=== PATIENT | female | born 1995 | race Caucasian/White ===

== ENCOUNTER → 2023-02-13 13:08 | Outpatient (BNVA) | payer OTHER, SELFPAY | PROVIDERS: PCP Internal Medicine; Visit Provider Nurse Practitioner Family | DX: G43.709 Chronic migraine without aura, not intractable, without status migrainosus (principal); G47.9 Sleep disorder, unspecified | CPT/HCPCS: 99202 ==

== ENCOUNTER → 2023-05-01 14:21 | Outpatient (BNVA) | payer OTHER, SELFPAY | PROVIDERS: PCP Internal Medicine; Visit Provider Nurse Practitioner Family | DX: G43.709 Chronic migraine without aura, not intractable, without status migrainosus (principal); G47.9 Sleep disorder, unspecified; K58.2 Mixed irritable bowel syndrome; F44.6 Conversion disorder with sensory symptom or deficit | CPT/HCPCS: 99212 ==

== ENCOUNTER 2023-10-31 14:19 | Outpatient (AMB) | payer OTHER, SELFPAY ==
--- NOTE | 2023-10-31 14:32 | MHC.OFFVIS ---
Intake Vital Signs 10/31/23 14:36 Height 5 ft 3 in Weight 115 lb BMI 20.4 Pulse 98 Pulse Source Pulse Oximeter Pulse Oximetry (%) 98 Oxygen Delivery Method Room Air Intake Visit Reasons: 6m follow up Migraines-LVM Intake Note: Patient presents for 6 month follow up migraines. more controlled but still getting them Allergies amoxicillin [From Augmentin] Allergy (Unknown, Verified 10/31/23 14:39) Rash clavulanic acid [From Augmentin] Allergy (Unknown, Verified 10/31/23 14:39) Rash levofloxacin [From Levaquin] Allergy (Unknown, Verified 10/31/23 14:39) Rash Medication List - Last Reconciled 10/31/23 by MONICA Lagos acetaminophen (Tylenol Extra Strength) 500 mg PO Q6H PRN atogepant 60 mg PO DAILY 30 days azelaic acid 15% 1 appl topical DAILY dicyclomine 10 mg PO QID duloxetine 30 mg PO DAILY eletriptan (Relpax) 40 mg PO Q2-4H PRN 30 days ibuprofen 200 mg PO Q6H PRN naproxen 500 mg PO BID norethindrone acetate 5 mg PO DAILY ondansetron HCl 4 mg PO Q8H promethazine 25 mg PO Q6H PRN riboflavin (vitamin B2) 400 mg PO DAILY 30 days HPI HPI Comments History of Present Illness Details 28-yr-old female presents for f/u visit. Pt states her migraines have improved some. Now about 10 days per month. Qulipta initially was helpful, but then increased nausea and worsened headaches. She did hold it and retry- but had the same s/s. She notes she does not eat much d/t her GI s/s- she is adjusting her diet and working w/ GI to optimize tx. Eletriptan is helpful. Does not always sleep well. [facility] Medical History (Updated 05/01/23 @ 17:05 by MONICA Lagos) GERD (gastroesophageal reflux disease) Chronic back pain Rosacea Irritable bowel syndrome with constipation and diarrhea Vitamin D deficiency Surgical History Status post skin flap graft Hx of appendectomy Family History Mother Migraines Hypertension Anxiety Father Bipolar disorder Alcoholism Sister Scoliosis ADHD Social History Alcohol intake: never Patient Tobacco Use Status: Never used Tobacco Review of Systems Const All systems reviewed & are unremarkable except as noted in HPI and below Physical Exam Vital Signs: Last Vital Signs Pulse 98 10/31/23 14:36 Pulse Ox 98 10/31/23 14:36 Oxygen Delivery Method Room Air 10/31/23 14:36 BMI result Body Mass Index 20.4 Const General: cooperative and no acute distress Orientation/consciousness: patient oriented x3 HEENT Head: Yes normocephalic Resp Effort & Inspection: normal respiratory effort and able to speak in complete sentences Neuro General: patient oriented x3 and CN's II-XI intact bilaterally Cognition (Neuro): normal cognition Psych Appearance: grossly normal Mental Status: mental status grossly normal Speech and movement: Normal speech and movement present Affect: normal affect Attitude: cooperative Thought process: Normal thought process present Assessment & Plan Assessment & Plan (1) Chronic migraine without aura: Code(s): G43.709 - Chronic migraine without aura, not intractable, without status migrainosus (2) Difficulty sleeping: Code(s): G47.9 - Sleep disorder, unspecified (3) 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 adequate fluid intake, adequate sleep, and engaging in regular physical activity. Track headaches. ? For acute headache treatment: Continue Eletriptan 40mg prn. May adjunct w/ Tylenol, Ibuprofen, or Naproxen prn. Continue on anti-nausea regimen per GI. Previous acute migraine medication trials: Sumatriptan- ineffective. Zolmitriptan- ineffective. Naratriptan- ineffective. Acute migraine medication contraindications: None at this time. ? For headache prevention medication: Riboflavin 400mg qam Stopped Atogepant 60mg qhs- not tolerated. Trial Mirtazapine 7.5mg qhs- may help w/ appetite an d sleep as well. Reviewed potential adverse effects of gepants, including but not limited to fatigue, constipation. Previous migraine prevention medication trials: Amitriptyline- ineffective. Propranolol- ineffective. Topiramate- ineffective. Atogepant- worked but then did not- and caused nausea. Magnesium 400mg qhs- caused loose stools Migraine prevention medication contraindications: Botox or CGRP MaBs as pt is very needle-phobic. ? Future considerations- refer to [facility] [place] [facility]- for lumabr strain/RLE s/s. ? f/u in 4 months or sooner prn. 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
[2023-10-31 14:36] VITALS: PULSE 98; O2SAT 98; BMI 20.4
== END 2023-10-31 15:25 | disposition home or self-care (01) ==
PROVIDERS: PCP Internal Medicine; Visit Provider Nurse Practitioner Family
DX: G43.709 Chronic migraine without aura, not intractable, without status migrainosus (principal); G47.9 Sleep disorder, unspecified; F44.6 Conversion disorder with sensory symptom or deficit
CPT/HCPCS: 99214

== ENCOUNTER → 2023-10-31 14:19 | Outpatient (BNVA) | payer OTHER, SELFPAY | PROVIDERS: PCP Internal Medicine; Visit Provider Nurse Practitioner Family | DX: G43.709 Chronic migraine without aura, not intractable, without status migrainosus (principal); G47.9 Sleep disorder, unspecified; F44.6 Conversion disorder with sensory symptom or deficit | CPT/HCPCS: 99212 ==

== ENCOUNTER 2024-03-06 14:28 | Outpatient (AMB) | payer OTHER, SELFPAY ==
--- NOTE | 2024-03-06 14:34 | A.OFFVIS_ITS ---
Vital Signs 03/06/24 14:37 Height 5 ft 3 in BP 110/72 Blood Pressure Location Rt brachial Position Sitting Pulse 90 Pulse Source Pulse Oximeter Pulse Oximetry (%) 98 Oxygen Delivery Method Room Air Intake Visit Reasons: 4 mo f/u - Migraines-CONF Intake Note: Patient presents follow up . Patient migraines are kind of the same she prescribed ubrelvy but by the time patient got medication migraines was gone. Allergies amoxicillin [From Augmentin] Allergy (Unknown, Verified 03/06/24 14:36) Rash clavulanic acid [From Augmentin] Allergy (Unknown, Verified 03/06/24 14:36) Rash levofloxacin [From Levaquin] Allergy (Unknown, Verified 03/06/24 14:36) Rash HPI Comments Details: 29-yr-old female presents for f/u visit. Pt denies any significant interval medical changes. Pt states that her headaches had subsided, but have returned. She had a severe migraine in Dec, she had to go to urgent care. The Eletriptan was not effective at that time. After that visit, we started pt on Ubrelvy prn, which has been helpful. Since, she has been using Eletriptan and Ubrelvy with better effect. Appetite is a bit better. Baseline headache characteristics: Prodrome symptoms: None Aura: No usual aura- may sometimes white lights Headache: Severe, usually bifrontal stabbing and throbbing, Photophobia, phonophobia, osmophobia, nausea, rarely vomiting, room spinning dizziness, brain fog, fatigue. Postdrome: Residual fatigue. [facility] Medical History (Updated 05/01/23 @ 17:05 by MONICA Lagos) GERD (gastroesophageal reflux disease) Chronic back pain Rosacea Irritable bowel syndrome with constipation and diarrhea Vitamin D deficiency Surgical History Status post skin flap graft Hx of appendectomy Family History Mother Migraines Hypertension Anxiety Father Bipolar disorder Alcoholism Sister Scoliosis ADHD Social History Alcohol intake: never Patient Tobacco Use Status: Never used Tobacco Physical Exam Vital Signs: Last Vital Signs Pulse 90 03/06/24 14:37 BP 110/72 03/06/24 14:37 Pulse Ox 98 03/06/24 14:37 Oxygen Delivery Method Room Air 03/06/24 14:37 Const General: cooperative and no acute distress Orientation/consciousness: patient oriented x3 Resp Effort & Inspection: normal respiratory effort and able to speak in complete sentences Neuro Other: Slow to stand- short steps w/ antalgic gait- steady w/cane. 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 adequate fluid intake, adequate sleep, and engaging in regular physical activity. Track headaches. ? For acute headache treatment: Continue Eletriptan 40mg prn. May adjunct w/ Tylenol, Ibuprofen, or Naproxen prn. Continue Ubrelvy 100mg prn. Ondansetron 4mg prn. May use Promethazine 25mg prn. Continue on anti-nausea regimen per GI. Previous acute migraine medication trials: Sumatriptan- ineffective. Zolmitriptan- ineffective. Naratriptan- ineffective. Acute migraine medication contraindications: None at this time. ? For headache prevention medication: Continue Riboflavin 400mg qam. Continue Mirtazapine 7.5mg qhs. Previous migraine prevention medication trials: Amitriptyline- ineffective. Propranolol- ineffective. Topiramate- ineffective. Atogepant- worked but then did not- and caused nausea. Magnesium 400mg qhs- caused loose stools Migraine prevention medication contraindications: Botox or CGRP MaBs as pt is very needle-phobic. ? Future considerations- [place] [facility] [place]- for lumbar strain/RLE s/s. ? f/u in 6 months or sooner prn. 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
[2024-03-06 14:37] VITALS: BP 110/72; PULSE 90; O2SAT 98
== END 2024-03-06 15:17 | disposition home or self-care (01) ==
PROVIDERS: PCP Internal Medicine; Visit Provider Nurse Practitioner Family
DX: G43.709 Chronic migraine without aura, not intractable, without status migrainosus (principal); G47.9 Sleep disorder, unspecified; F44.6 Conversion disorder with sensory symptom or deficit
CPT/HCPCS: 99214

== ENCOUNTER → 2024-03-06 14:28 | Outpatient (BNVA) | payer OTHER, SELFPAY | PROVIDERS: PCP Internal Medicine; Visit Provider Nurse Practitioner Family | DX: G43.709 Chronic migraine without aura, not intractable, without status migrainosus (principal); G47.9 Sleep disorder, unspecified; F44.6 Conversion disorder with sensory symptom or deficit | CPT/HCPCS: 99212 ==

== ENCOUNTER 2024-09-10 15:22 | Outpatient (AMB) | payer OTHER, SELFPAY ==
--- NOTE | 2024-09-10 15:22 | MHC.OFFVIS ---
Vital Signs 09/10/24 15:23 Height 5 ft 3 in Weight 125 lb BMI 22.1 BP 102/68 Blood Pressure Location Rt brachial Position Sitting Pulse 112 H Pulse Source Pulse Oximeter Pulse Oximetry (%) 98 Oxygen Delivery Method Room Air Intake Visit Reasons: 6 month F/U [employer] Required: No Accompanied by: Self / Same As Patient Allergies amoxicillin [From Augmentin] Allergy (Unknown, Verified 09/10/24 15:23) Rash clavulanic acid [From Augmentin] Allergy (Unknown, Verified 09/10/24 15:23) Rash levofloxacin [From Levaquin] Allergy (Unknown, Verified 09/10/24 15:23) Rash Medication List - Last Reconciled 09/10/24 by Vale Aguila, MONICA acetaminophen (Tylenol Extra Strength) 500 mg PO Q6H PRN azelaic acid 15% 1 appl topical DAILY dicyclomine 20 mg PO QID duloxetine 30 mg PO DAILY eletriptan (Relpax) 40 mg PO Q2-4H PRN 30 days ibuprofen 200 mg PO Q6H PRN mirtazapine 7.5 mg PO BEDTIME 30 days naproxen 500 mg PO BID norethindrone acetate 5 mg PO DAILY ondansetron HCl 4 mg PO Q8H prednisone 5 mg PO DAILY promethazine 25 mg PO Q6H PRN riboflavin (vitamin B2) 400 mg PO DAILY 30 days ubrogepant (Ubrelvy) 50 - 100 mg (0.5 - 1 x 100 mg) PO ONCE PRN 30 days HPI Comments Details: 29-yr-old female presents for f/u visit. Pt did have Covid-19 in early Jun- started as prolonged migraine, weakness, cough/congestion f/b anorexia, N/D x's 1.5 wks. She eventually did return to her baseline. Pt states she has had an uptick in migraine attacks. She attributes this to recent weather changes and that her hair is longer. She is having a daily but not constant migraine - intensity can vary, when severe she cannot do her daily activities. Tolerating mirtazapine well- helping with appetite, weight gain- gained 10lbs , but not so much with the migraines. Using Eletriptan and Ubrelvy with better effect when migraine is severe, as eletriptan makes her sleepy which is helpful. She is still prone to frequent nausea and IBS flare-ups w/ fluctuating diarrhea and constipation. Continues to walk with cane. Baseline headache characteristics: Prodrome symptoms: None Aura: No usual aura- may sometimes white lights Headache: Severe, usually bifrontal stabbing and throbbing, Photophobia, phonophobia, osmophobia, nausea, rarely vomiting, room spinning dizziness, brain fog, fatigue. Postdrome: Residual fatigue. PFSH Medical History GERD (gastroesophageal reflux disease) Chronic back pain Rosacea Irritable bowel syndrome with constipation and diarrhea Vitamin D deficiency Surgical History Status post skin flap graft Hx of appendectomy Family History Mother Migraines Hypertension Anxiety Father Bipolar disorder Alcoholism Sister Scoliosis ADHD Social History Alcohol intake: never Patient Tobacco Use Status: Never used Tobacco Physical Exam Vital Signs: Last Vital Signs Pulse 112 H 09/10/24 15:23 BP 102/68 09/10/24 15:23 Pulse Ox 98 09/10/24 15:23 Oxygen Delivery Method Room Air 09/10/24 15:23 BMI result Body Mass Index 22.1 Const General: cooperative and no acute distress Orientation/consciousness: patient oriented x3 Resp Effort & Inspection: normal respiratory effort and able to speak in complete sentences Neuro Other: Slow to stand- short steps w/ antalgic gait- steady w/cane. 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 adequate fluid intake, adequate sleep, and engaging in regular physical activity. Track headaches. ? For acute headache treatment: Continue Ubrelvy 100mg prn. May adjunct w/ prn Eletriptan 40mg, Tylenol, Ibuprofen, or Naproxen.. Ondansetron 4mg prn. May use Promethazine 25mg prn. Continue on anti-nausea regimen per GI. Previous acute migraine medication trials: Sumatriptan- ineffective. Zolmitriptan- ineffective. Naratriptan- ineffective. Acute migraine medication contraindications: None at this time. ? For headache prevention medication: Continue Riboflavin 400mg qam. Continue Mirtazapine 7.5mg qhs- would not increase further as pt has already had 10 lb wt gain 6 6 months. Start Vyepti 100mg IV infusion q 3 months- pt states she belives she can do this as long as it is one IV just every 3 months and she can lay flat to avoid syncopal response. Previous migraine prevention medication trials: Amitriptyline- ineffective. Propranolol- ineffective. Topiramate- ineffective. Atogepant- worked but then did not- and caused nausea. Magnesium 400mg qhs- caused loose stools Migraine prevention medication contraindications: Botox or CGRP MaBs as pt is very needle-phobic. Depakote d/t pt is a female of child bearing age. ? Future considerations- refer to [facility] [place] [facility]- for lumbar strain/RLE s/s. ? f/u in 4-6 months or sooner prn. 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
[2024-09-10 15:23] VITALS: BP 102/68; PULSE 112; O2SAT 98; BMI 22.1
== END 2024-09-10 16:13 | disposition home or self-care (01) ==
PROVIDERS: PCP Internal Medicine; Visit Provider Nurse Practitioner Family
DX: G43.709 Chronic migraine without aura, not intractable, without status migrainosus (principal); F44.6 Conversion disorder with sensory symptom or deficit; K58.2 Mixed irritable bowel syndrome; G47.9 Sleep disorder, unspecified
CPT/HCPCS: 99214

== ENCOUNTER → 2024-09-10 15:22 | Outpatient (BNVA) | payer OTHER, SELFPAY | PROVIDERS: PCP Internal Medicine; Visit Provider Nurse Practitioner Family | DX: G43.709 Chronic migraine without aura, not intractable, without status migrainosus (principal); F44.6 Conversion disorder with sensory symptom or deficit; K58.2 Mixed irritable bowel syndrome; G47.9 Sleep disorder, unspecified | CPT/HCPCS: 99212 ==

== ENCOUNTER 2025-04-07 14:52 | Outpatient (AMB) | payer OTHER, SELFPAY ==
--- NOTE | 2025-04-07 14:53 | A.OFFVIS_ITS ---
Vital Signs 04/07/25 14:55 Height 5 ft 3 in Weight 125 lb BMI 22.1 Intake Visit Reasons: Follow Up Intake Note: Patient presents for follow up migraines med trial Allergies amoxicillin [From Augmentin] Allergy (Unknown, Verified 04/07/25 15:06) Rash clavulanic acid [From Augmentin] Allergy (Unknown, Verified 04/07/25 15:06) Rash levofloxacin [From Levaquin] Allergy (Unknown, Verified 04/07/25 15:06) Rash Medication List - Last Reconciled 04/07/25 by MONICA Lagos acetaminophen (Tylenol Extra Strength) 500 mg PO Q6H PRN azelaic acid 15% 1 appl topical DAILY dicyclomine 20 mg PO QID duloxetine 30 mg PO DAILY eletriptan (Relpax) 40 mg PO Q2-4H PRN 30 days eptinezumab-jjmr (Vyepti) 100 mg IV [id number] 4 doses ibuprofen 200 mg PO Q6H PRN mirtazapine 7.5 mg PO BEDTIME 30 days naproxen 500 mg PO BID norethindrone acetate 5 mg PO DAILY ondansetron HCl 4 mg PO Q8H prednisone 5 mg PO DAILY promethazine 25 mg PO Q6H PRN riboflavin (vitamin B2) 400 mg PO DAILY 30 days ubrogepant (Ubrelvy) 50 - 100 mg (0.5 - 1 x 100 mg) PO ONCE PRN 30 days HPI Comments Details: 29-yr-old female presents for f/u visit of migraine. Pt reports she has had an uptick in right sided pressure headaches in the last few weeks, a/w photophobia/phonophobia and increased nausea. The nausea makes her not want to eat. Putting her head down to her knees and eletriptan helps if taken at the 1st sign, but may come back. If she does not catch it at the 1st soon, the headache is is much harder to treat. She had a similar headache like this last year during allergy season She is prone to allergy symptoms and postnasal drip, uses Flonase. Prone to waking up with a scratchy sore throat. She also notes she did aggravate her lower back recently while helping to put together her bed. Pt reports in general she is having a migraine every other day, rarely every third day. Migraine intensity can vary, when severe she cannot do her daily activities. Tolerating mirtazapine well- helping with sleep and appetite, weight gain- previously gained 10lbs and weight has been stable since, but not so much with the migraines. Using Eletriptan and Ubrelvy with better effect when migraine is severe, as eletriptan makes her sleepy which is helpful. She did not start Vyepti, though it appears request for prior authorization indicated that this does not require insurance prior authorization. She is still prone to frequent nausea and IBS flare-ups w/ fluctuating diarrhea and constipation. Continues to walk with cane. Baseline headache characteristics: Prodrome symptoms: None Aura: No usual aura- may sometimes white lights Headache: Severe, usually bifrontal stabbing and throbbing, Photophobia, phonophobia, osmophobia, nausea, rarely vomiting, room spinning dizziness, brain fog, fatigue. Postdrome: Residual fatigue. [facility] Medical History GERD (gastroesophageal reflux disease) Chronic back pain Rosacea Irritable bowel syndrome with constipation and diarrhea Vitamin D deficiency Surgical History Status post skin flap graft Hx of appendectomy Family History Mother Migraines Hypertension Anxiety Father Bipolar disorder Alcoholism Sister Scoliosis ADHD Social History Alcohol intake: never Patient Tobacco Use Status: Never used Tobacco Physical Exam Vital Signs: BMI result Body Mass Index 22.1 Const General: cooperative and no acute distress Orientation/consciousness: patient oriented x3 Resp Effort & Inspection: normal respiratory effort and able to speak in complete sentences Neuro Other: Slow to stand- short steps w/ antalgic gait- steady w/cane. General: patient oriented x3 Cranial nerves: Yes CN's II-XII intact bilaterally Cognition (Neuro): normal cognition Psych Appearance: grossly normal Mental Status: mental status grossly normal Speech and movement: Normal speech and movement present Affect: normal affect Attitude: cooperative Assessment & Plan Assessment & Plan (1) Chronic migraine without aura: Code(s): G43.709 - Chronic migraine without aura, not intractable, without status migrainosus Category: Medical Qualifiers: Status migrainosus presence: without status migrainosus Intractability: not intractable Qualified Code(s): G43.709 - Chronic migraine without aura, not intractable, without status migrainosus (2) 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 adequate fluid intake, adequate sleep, and engaging in regular physical activity. Track headaches. For sleep: Trial adjusting her current Flonase treatment, with Azelastine 137 mcg 2 sprays q.h.s., and 2 sprays q.a.m. as needed- in hopes this reduces allergy symptoms, improve sleep, and reduces seasonal allergy induced migraine attacks. ? For acute headache treatment: Continue Ubrelvy 100mg prn. May adjunct w/ prn Eletriptan 40mg, Tylenol, Ibuprofen, or Naproxen.. Ondansetron 4mg prn. May use Promethazine 25mg prn. Continue on anti-nausea regimen per GI. Previous acute migraine medication trials: Sumatriptan- ineffective. Zolmitriptan- ineffective. Naratriptan- ineffective. Acute migraine medication contraindications: None at this time. ? For headache prevention medication: Continue Riboflavin 400mg qam. Continue Mirtazapine 7.5mg qhs- would not increase further as pt has already had 10 lb wt gain 6 6 months. Start Vyepti 100mg IV infusion q 3 months- pt states she belives she can do this as long as it is one IV just every 3 months and she can lay flat to avoid s yncopal response. * Initiated Vyepti hold Q order for the infusion center. Previous migraine prevention medication trials: Amitriptyline- ineffective. Propranolol- ineffective. Topiramate- ineffective. Atogepant- worked but then did not- and caused nausea. Magnesium 400mg qhs- caused loose stools Migraine prevention medication contraindications: Botox or CGRP MaBs as pt is very needle-phobic. Depakote d/t pt is a female of child bearing age. ? Future considerations- refer [place] [facility] [place] [facility] [place]- for lumbar strain/RLE s/s. ? f/u in 6 months or sooner prn. Medications: New azelastine administer into each nostril 137 mcg (0.137 mL) intranasal Q12H 30 days 8.22 mL 6RF Changed From riboflavin (vitamin B2) 400 mg PO DAILY 30 days 30 tabs 6RF To riboflavin (vitamin B2) 400 mg PO DAILY 90 days 90 tabs 3RF Refilled mirtazapine 7.5 mg PO BEDTIME 30 days 30 tabs 6RF eletriptan (Relpax) do not exceed 2 doses per 24 hrs 40 mg PO Q2-4H 30 days PRN 12 tabs 6RF migraine headache ubrogepant (Ubrelvy) take at onset of migraine, may repeat in 2hrs (may take w/ Ibuprofen) 50 - 100 mg (0.5 - 1 x 100 mg) PO ONCE 30 days PRN 16 tabs 6RF migraine headache Coding Level of Care Code Est Pt Level 4 (62202) Diagnoses Chronic migraine without aura without status migrainosus, not intractable G43.709 Status migrainosus presence: without status migrainosus Intractability: not intractable 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
[2025-04-07 14:55] VITALS: BMI 22.1
--- OUTSIDE RECORDS SUMMARY | 2025-04-07 14:58 | XMS_ITS | Clinical Summary ---
Author Organization [facility] Address [address] [place] [address] Care Team Providers Care Magazine Journalist Name Role Phone Alix Deshpande MD Primary Care Provider [phone] Allergies Active Allergy Reactions Criticality Noted Date Comments Amoxicillin-Pot Clavulanate 08/12/20 19 Levofloxacin 08/12/2019 Medications Medication Sig Dispensed Refills Start Date End Date Status ibuprofen (ADVIL,MOTRIN) 600 MG tablet Take 600 mg by mouth every 6 (six) hours as needed. for pain 0 07/23/2019 Active promethazine (PHENERGAN) tablet 25 mg Take 25 mg by mouth every 8 (eight) hours as needed. for nausea 2 07/22/2019 Active ondansetron (ZOFRAN-ODT) 4 MG disintegrating tablet DISSOLVE 1 TABLET BY MOUTH EVERY 8 HOURS NEEDED FOR NAUSEA *INSURANCE PAYS FOR 1 TAB A DAY* 2 07/20/2019 Active norethindrone (AYGESTIN) 5 MG tablet Take 5 mg by mouth daily. 11 07/20/2019 Active tiZANidine (ZANAFLEX) 4 MG tablet TAKE 1 TAB BY MOUTH AT BEDTIME NEEDED FOR MUSCLE SPASMS. 0 07/15/2019 Active [facility] SENNA 8.6 MG tablet TAKE 2 TABLETS BY MOUTH DAILY NEEDED FOR CONSTIPATION 5 06/02/2019 Active acetaminophen (TYLENOL) 500 MG tablet Take by mouth every 6 (six) hours as needed. 0 Active Active Problems Problem Noted Date Diagnosed Date [place]-neck deformity left small finger 08/12/2019 Family History Medical History Relation Name Comments Anesthesia problems Mother Arthritis Mother Scoliosis Mother Scoliosis Sister Relation Name Status Comments Mother Sister Social History Tobacco Use Types Packs/Day Years Used Date Smoking Tobacco: Never Smokeless Tobacco: Never Alcohol Use Standard Drinks/Week Comments No 0 (1 standard drink = 0.6 oz pur e alcohol) Sex and Gender Information Value Date Recorded Sex Assigned at Not on file Gender Identity Not on file Sexual Orientation Not on file Job Start Date Occupation Industry Not on file Not on file Not on file Last Filed Vital Signs Vital Sign Reading Time Taken Comments Blood Pressure - - Pulse - - Temperature - - Respiratory Rate - - Oxygen Saturation - - Inhaled Oxygen Concentration - - Weight 63.5 kg (140 lb) 08/12/2019 11:10 AM EDT per patient Height 160 cm (5' 3 ) 08/12/2019 11:10 AM EDT pe r patient Body Mass Index 24.8 08/12/2019 11:10 AM EDT Plan of Treatment Health Maintenance Due Date Last Done Comments Hepatitis B Vaccines (1 of 3 - 3-dose series) 1996 Hepatitis C Screening 1996 COVID-19 Vaccine (#1) 1996 Depression Screening 2008 Preventative Health Evaluation 02/20/2014 DTap / Tdap / Td (1 - Tdap) 02/20/2015 Cervical Cancer Screening (P ap Smear) 02/20/2017 Influenza Vaccine (#1) 2024 Pneumococcal Vaccine Aged Out No long er eligible based on patient's age to complete this topic RSV Ped < 20 months Aged Out No longe r eligible based on patient's age to complete this topic Care Teams Magazine Journalist Relationship Specialty Start Date End Date Alix Deshpande MD PCP - General Internal Medicine 07/21/19
--- OUTSIDE RECORDS SUMMARY | 2025-04-07 14:58 | XMS_ITS | Clinical Summary ---
Author Organization [address] Address [address] [place] [phone] Phone Care Team Providers Care Machine Sign Writer Name Role Phone Senia Hayes MD Primary Care Provider [phone] Allergies Active Allergy Reactions Criticality Noted Date Comments Amoxicillin-Pot Clavulanate 03/19/20 13 Other Reaction(s): Rash/Dermatitis Levofloxacin Rash High 03/20/2018 Kdc: propylene Glycol+saccharin+levoflo xacin Medications azelaic acid (FINACEA) 15 % gel Apply 1 film topically. 023 Active eletriptan (RELPAX) 40 mg tablet Take 1 tablet (40 mg total) by mouth. 020 Active ondansetron ODT (ZOFRAN-ODT) 8 mg disintegrating tablet Take 1 tablet (8 mg total) by mouth. 024 Active promethazine (PHENERGAN) 25 mg tablet Take 1 tablet (25 mg total) by mouth every 8 (eight) hours if needed. 024 Active ubrogepant (UBRELVY) 100 mg tablet Take 1 tablet (100 mg total) by mouth 1 (one) time. Active norethindrone (AYGESTIN) 5 mg tabletIndications :Dysmenorrhea, unspecified TAKE 1 TABLET BY MOUTH EVERY DAY 90 tablet 4 024 Active Pain Relief ES, acetaminophen, 500 mg tablet TAKE 2 TABLETS BY MOUTH EVERY 6 HOURS NEEDED (PAIN). 90 tablet Active dicyclomine (BENTYL) 20 mg tablet TAKE 1 TABLET BY MOUTH 4 TIMES DAILY FOR 180 DAYS. 120 tablet 5 Active amitriptyline (ELAVIL) 10 mg tablet TAKE 1 TABLET BY MOUTH DAILY AT BEDTIME FOR PAIN Active ivermectin 1 % cream APPLY TO FACE EVERY DAY Active fluticasone propionate (FLONASE) 50 mcg/actuation nasal spray Administer 1 spray into each nostril 2 (two) times a day. Shake gently. Before first use, prime pump. After use, clean tip and replace cap. 16 g 1 Active cetirizine (ZyrTEC) 10 mg tablet Take 1 tablet (10 mg total) by mouth 1 (one) time each day. 30 each 1 Active mirtazapine (REMERON) 7.5 mg tablet Take 1 tablet (7.5 mg total) by mouth. at bedtime Active mesalamine (LIALDA) 1.2 gram EC tabletIndications :Ileitis Take 1 tablet (1.2 g total) by mouth 1 (one) time each day. Do not crush, chew, or split. 30 each 3 025 2025 Active tiZANidine (ZANAFLEX) 4 mg tablet Take 1 tablet (4 mg total) by mouth at bedtime. 7 tablet Active benzocaine-mentho L (Cepacol Instamax Sore Throat) 15-20 mg lozenge Dissolve 1 lozenge in the mouth every 4 (four) hours if needed (sore throat). 30 lozenge 1 025 2024 Discontinued ibuprofen (ADVIL,MOTRIN) 100 mg/5 mL suspension Take 30 mL (600 mg total) by mouth every 8 (eight) hours if needed (sore throat). 900 mL 2024 Discontinued(T herapy completed) diphenhydrAMINE 12.5 mg/5 mL elixir 50 mg, aluminum-magnesiu m hydroxide-simethi cone 400-400-40 mg/5 mL suspension 20 mL, lidocaine 2 % solution 20 mL Gargle & spit 10mLs every 6 hours PRN pharyngitis 1 each 1 02/04/ 025 2024 Discontinued(T herapy completed) baclofen (LIORESAL) 10 mg tablet Take 1 tablet (10 mg total) by mouth at bedtime as needed for muscle spasms. 30 each 3 02/23/ 025 2024 Discontinued Active Problems Problem Noted Date Diagnosed Date Chronic bilateral low back pain 06/03/2024 Overview (08/20/2024): Worker's Comp. injury. Following with [facility]. Ileitis 09/09/2023 Rosacea 05/27/2020 Microscopic hematuria 09/03/2019 Overview (08/20/2024): 09/05- 8 RBC, recheck ordered, neg culture 10/06- recheck never done, letter sent. Abnormal CXR 08/27/2019 Overview (08/20/2024): 09/05- lingular pneumonia, followup cxr 4-6 weeks [id number] chest x-ray never done, letter sent 11/05- follow-up chest x-ray never done, letter sent again Irritable bowel syndrome wit h both constipation and diarrhea 02/18/2018 Overview (01/14/2025): Vitamin D deficiency 02/05/2017 Recurrent cold sores 01/28/2017 Menstrual migraine 2015 Overview (01/14/2025): Dr. Nieves Encounters Date Type Department Care Team Description 03/30/2025 3:45 PM EDT Office Visit Adult Medicine [address] [phone] Sarah Stanford PA Chronic bilateral low back pain, unspecified whether sciatica present (Primary Dx) 03/16/2025 Telephone Gastroenterology - [place] [facility] 175 [facility] [address] [place] [address] Megan Macario PA 02/25/2025 Telephone Gastroenterology [facility] [address] [phone] Emily Linares [place] 02/25/2025 Telephone Gastroenterology [facility] [address] [phone] Megan Macario PA PROVIDER CALL BACK 02/24/2025 Telephone Gastroenterology [facility] [address] [phone] Megan Macario PA PRIOR AUTHORIZATION 02/23/2025 1:40 PM EDT [facility] [address] [phone] Megan Macario PA Ileitis (Primary Dx); Irritable bowel syndrome with diarrhea; Chronic nausea 02/23/2025 Telephone Gastroenterology [facility] [address] [phone] Megan Macario PA 02/04/2025 3:00 PM EDT Office Visit Adult Medicine [address] [phone] Sarah Stanford PA Voice hoarseness (Primary Dx); Pharyngitis, unspecified etiology from Last 3 Months Immunizations Name Administration Dates Next Due DTaP (Infanrix) 6wks to less than 7yo ,08/31/1997,1996,07/09,1996 [id number] (Pentacel) 2mo to less than 5yo 05/31/1997,1996,1996,05/04 HPV, Quadrivalent 10/25/2010,07/10/2010,05/10/20 10 Hepatitis B Pediatric (Enger ix B; Recombivax HB) to less than 20 yo 1996,1996,1996 Influenza, Unspecified 09/03/2017 MMR, measles mumps and rubel la Live (Priorix; M-M-R II) 12mo and older 01/30/2001,05/31/1997 Meningococcal MCV4P 05/27/2013,04/22/2008 OPV 01/30/2001, 6,1996,05/04 Tdap Tetanus diptheria acell ular pertussis (Boostrix; Adacel) 7yo and older 01/29/2018,04/30/2007 Varicella live (Varivax) 12m o and older 05/10/2010,02/15/1998 Surgical History Surgery Date Site/Laterality Comments APPENDECTOMY Medical History Medical History Date Comments Recurrent cold sores 01/28/2017 Vitamin D deficiency 02/05/2017 Family History Medical History Relation Name Comments Bipolar disorder Father alcoholism Hypertension Mother anxiety, migrai ne, asthma ADD / ADHD Sister Relation Name Status Comments Father Mother Sister Social History Tobacco Use Types Packs/Day Years Used Date Smoking Tobacco: Never Smokeless Tobacco: Never Tobacco Cessation:Counseling Given: Not Answered Alcohol Use Standard Drinks/Week Comments No 0 (1 standard drink = 0.6 oz pur e alcohol) Housing Instability Answer Date Recorde d Are you worried that in the next 2 months you may not have stable housing? No 03/29/2025 Food Access & Nutrition Answer Date Rec orded Do you have access to a vari ety of food including fruits and vegetables? Yes 03/29/2025 Access to Healthcare Answer Date Record ed Within the last 3 months, ho w many times did you visit the emergency department for your medical care? 0 03/29/2025 Health Literacy Answer Date Recorded How often do you need to hav e someone help you when you read instructions, pamphlets, or other written material from your doctor or pharmacy? Never 03/29/2025 Caregiver: How often do you need to have someone help you when you read instructions, pamphlets, or other written material from your doctor or pharmacy? Not on file 03/29/2025 Financial Risk Answer Date Recorded How hard is it for you to pa y for the very basics like food, housing, medical care, and air conditioning / heating? Not very hard 03/29/2025 Transportation Answer Date Recorded Has the lack of transportati on kept you from meetings, work, or from getting things needed for daily living? No Has the lack of transportati on kept you from medical appointments or from getting medications? No 03/29/2025 Social Isolation Answer Date Recorded How often do you feel lonely or isolated from th ose around you? Never 03/29/2025 Food Risk Answer Date Recorded Within the past 12 months we worried whether our food would run out before we got money to buy more. Never true 03/29/2025 Within the past 12 months th e food we bought just didn't last and we didn't have money to get more. Never true 03/29/2025 Dependent Care Answer Date Recorded Do you need help finding or paying for care for your loved ones. For example, child care counselor or elderly care for an older adult? No 03/29/2025 Education Answer Date Recorded Do you think completing more education or training, like finishing a GED, going to college, or learning a trade, would be helpful for you? N/A 03/29/2025 Employment and Income Answer Date Recor ded During the last four weeks, have you been actively looking for work? No 03/29/2025 Living Situation Answer Date Recorded What is your living situation? 0 03/29/2025 Comments No Sex and Gender Information Value Date Recorded Sex Assigned at Not on file Legal Sex Female 1:28 AM EST Gender Identity Not on file Sexual Orientation Not on file Obstetrics History Last Filed Vital Signs Vital Sign Reading Time Taken Comments Blood Pressure 110/84 03/30/2025 3:53 PM EDT Pulse 76 03/30/2025 3:53 PM EDT Temperature 36.5 ??C (97.7 ??F) 03/30/2025 3:53 PM ED T Respiratory Rate 16 03/30/2025 3:53 PM EDT Oxygen Saturation - - Inhaled Oxygen Concentration - - Weight 59 kg (130 lb) 02/23/2025 1:37 PM EDT Height 160 cm (5' 3 ) 03/30/2025 3:53 PM EDT Body Mass Index 23.03 02/23/2025 1:37 PM EDT Plan of Treatment Upcoming Encounters Date Type Department Care Team (Late st Contact Info) Description 05/19/2025 2:30 PM EDT Appointment [facility] Endoscopy [address] [place] [phone] Ron Richards MD 175 [facility] [address] [place] [address] 06/15/2025 11:00 AM EDT Office Visit Internal Medicine - [facility] [address] [place], [place] [phone] Senia Hayes MD [address] [place], [place] Health Maintenance Due Date Last Done Comments Cervical Cancer Screening: Pap Smear 02/20/2017 Cholesterol Screening (Lipid Panel) 10/27/2022 HIV Screening 10/27/2022 Hepatitis C Screening 10/27/2022 COVID-19 Vaccine ( season) 2024 11/23/2021, 04/26/2021, 04/05/2021 Influenza Vaccine (Season Ended) 2025 09/03/2017, 08/29/2013, 08/21/2012, Additional history exists Depression Screening 03/29/2026 03/29/2025, 12/04/19 24 Social Influencers of Health Screening 03/29/2026 03/29/2025, 12/02/2023 DTaP,Tdap,and Td Vaccines (8 - Td or Tdap) 01/30/2028 01/29/2018, 04/30/2007, 01/30/2001, Additional history exists Hepatitis B Vaccines Completed 1996, 1996, 1996 HIB Vaccines Completed 05/31/1997, 05/18, 1996, Additional history exists IPV Vaccines Completed 01/30/2001, 05/18, 1996, Additional history exists MMR Vaccines Completed 01/30/2001, 05/31/1997 Varicella Vaccines Completed 05/10/2010, 02/15/1998 HPV Vaccines Completed 10/25/2010, 06/19, 05/10/2010 Meningococcal ACWY Vaccine Completed 05/27/2013, Hepatitis A Vaccines Aged Out No long er eligible based on patient's age to complete this topic Meningococcal B Vaccine Aged Out No l onger eligible based on patient's age to complete this topic Pneumococcal Vaccine: Pediatrics (0 to 5 Years) and At-Risk Patients (6 to 64 Years) Aged Out No longer eligible based on patient's age to complete this topic RSV Immunization Patients Under 20 months Aged Out No longer eligible based on patient's age to complete this topic Insurance [facility] Care Teams Machine Sign Writer Relationship Specialty Start Date End Date Senia Hayes MD [address] [place] [phone] PCP - General Internal Medicine 03/30/25
== END 2025-04-07 16:06 | disposition home or self-care (01) ==
LOC: HO.HSMS 14:52
PROVIDERS: PCP Internal Medicine; Visit Provider Nurse Practitioner Family
DX: G43.709 Chronic migraine without aura, not intractable, without status migrainosus (principal); F44.6 Conversion disorder with sensory symptom or deficit; K58.2 Mixed irritable bowel syndrome; G47.9 Sleep disorder, unspecified
CPT/HCPCS: 99214

== ENCOUNTER → 2025-04-07 14:52 | Outpatient (BNVA) | payer OTHER, SELFPAY | PROVIDERS: PCP Internal Medicine; Visit Provider Nurse Practitioner Family | DX: G43.709 Chronic migraine without aura, not intractable, without status migrainosus (principal); G47.9 Sleep disorder, unspecified; F44.6 Conversion disorder with sensory symptom or deficit; K58.2 Mixed irritable bowel syndrome | CPT/HCPCS: 99212 ==

== ENCOUNTER 2025-10-11 13:42 | Outpatient (AMB) | payer OTHER, SELFPAY ==
--- NOTE | 2025-10-11 13:35 | A.OFFVIS_ITS ---
Intake Visit Reasons: 6m Follow Up Intake Note: Patient presents for follow up migraines med trial Accompanied by: Self / Same As Patient Allergies amoxicillin (From Augmentin) Allergy (Unknown, Verified 04/07/25 15:06) Rash clavulanic acid (From Augmentin) Allergy (Unknown, Verified 04/07/25 15:06) Rash levofloxacin (From Levaquin) Allergy (Unknown, Verified 04/07/25 15:06) Rash Medication List - Last Reconciled 10/11/25 by MONICA Lagos acetaminophen (Tylenol Extra Strength) 500 mg PO Q6H PRN azelaic acid 15% 1 appl topical DAILY azelastine 137 mcg (0.137 mL) intranasal Q12H 30 days dicyclomine 20 mg PO QID duloxetine 30 mg PO DAILY eletriptan (Relpax) 40 mg PO Q2-4H PRN 30 days eptinezumab-jjmr (Vyepti) 100 mg IV [id number] 4 doses ibuprofen 200 mg PO Q6H PRN mirtazapine 7.5 mg PO BEDTIME 30 days naproxen 500 mg PO BID norethindrone acetate 5 mg PO DAILY ondansetron HCl 4 mg PO Q8H promethazine 25 mg PO Q6H PRN riboflavin (vitamin B2) 400 mg PO DAILY 90 days ubrogepant (Ubrelvy) 50 - 100 mg (0.5 - 1 x 100 mg) PO ONCE PRN 30 days HPI Comments Details: 29-yr-old female presents for f/u visit of migraine. She states the azelastine for the more allergy right-sided pressure headaches and allergy symptoms and postnasal drip. She has started to have an increase in migraines with the weather being colder and having increased stress- as her older is dying. Pt reports in general she is having a migraine every other to every third day. Migraine intensity can vary, when severe she cannot do her daily activities. Tolerating mirtazapine well- helping with sleep and appetite, weight gain- previously gained 10lbs and weight has been stable since, but not so much with the migraines. Using Eletriptan and Ubrelvy with better effect when migraine is severe, as eletriptan makes her sleepy which is helpful. She did not start Vyepti, states she did not hear from anyone to make an appointment. She is still prone to frequent nausea and IBS flare-ups w/ fluctuating diarrhea and constipation. Continues to walk with cane. Baseline headache characteristics: Prodrome symptoms: None Aura: No usual aura- may sometimes white lights Headache: Severe, usually bifrontal stabbing and throbbing, Photophobia, phonophobia, osmophobia, nausea, rarely vomiting, room spinning dizziness, brain fog, fatigue. Postdrome: Residual fatigue. PFSH Medical History GERD (gastroesophageal reflux disease) Chronic back pain Rosacea Irritable bowel syndrome with constipation and diarrhea Vitamin D deficiency Surgical History Status post skin flap graft Hx of appendectomy Family History Mother Migraines Hypertension Anxiety Father Bipolar disorder Alcoholism Sister Scoliosis ADHD Social History Alcohol intake: never Patient Tobacco Use Status: Never used Tobacco Physical Exam Const General: cooperative and no acute distress Orientation/consciousness: patient oriented x3 Resp Effort & Inspection: normal respiratory effort and able to speak in complete sentences Neuro General: patient oriented x3 Cranial nerves: Yes Normal facial strength present Cognition (Neuro): normal cognition Psych Appearance: grossly normal Mental Status: mental status grossly normal Speech and movement: Normal speech and movement present Affect: normal affect Attitude: cooperative Telehealth Telehealth Telehealth Platform: [facility] Location of provider rendering services: practice address Location of patient: address on file Patient Identification confirmed using: Name, : Yes Telehealth method: video Patient verbally consented to treatment: Yes Patient verbally consented to billing insurance company: Yes Patient informed of any privacy concerns related to visit: Yes Minutes spent on Phone/Video with Pt.: 17 Assessment & Plan Assessment & Plan (1) Chronic migraine without aura: Code(s): G43.709 - Chronic migraine without aura, not intractable, without status migra inosus Category: Medical Qualifiers: Status migrainosus presence: without status migrainosus Intractability: not intractable Qualified Code(s): G43.709 - Chronic migraine without aura, not intractable, without status migrainosus (2) 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 adequate fluid intake, adequate sleep, and engaging in regular physical activity. Track headaches. For sleep and pressure/allergy headaches: Azelastine 137 mcg 2 sprays q.h.s., and 2 sprays q.a.m. as needed- in hopes this reduces allergy symptoms, improve sleep, and reduces seasonal allergy induced migraine attacks. ? For acute headache treatment: Continue Ubrelvy 100mg prn. May adjunct w/ prn Eletriptan 40mg, Tylenol, Ibuprofen, or Naproxen.. Ondansetron 4mg prn. May use Promethazine 25mg prn. Continue on anti-nausea regimen per GI. Previous acute migraine medication trials: Sumatriptan- ineffective. Zolmitriptan- ineffective. Naratriptan- ineffective. Acute migraine medication contraindications: None at this time. ? For headache prevention medication: Continue Riboflavin 400mg qam. Continue Mirtazapine 7.5mg qhs- would not increase further as pt has already had 10 lb wt gain 6 6 months. Again start Vyepti 100mg IV infusion q 3 months- pt states she belives she can do this as long as it is one IV just every 3 months and she can lay flat to avoid syncopal response. * Initiated Vyepti hold Q order for the infusion center. Previous migraine prevention medication trials: Amitriptyline- ineffective. Propranolol- ineffective. Topiramate- ineffective. Atogepant- worked but then did not- and caused nausea. Magnesium 400mg qhs- caused loose stools Migraine prevention medication contraindications: Botox or CGRP MaBs as pt is very needle-phobic. Depakote d/t pt is a female of child bearing age. ? Future considerations- refer to [facility]- for lumbar strain/RLE s/s. ? f/u in 6 months or sooner prn. Medications: Changed From mirtazapine 7.5 mg PO BEDTIME 30 days 30 tabs 6RF To mirtazapine 7.5 mg PO BEDTIME 90 tabs 3RF 90 days From azelastine administer into each nostril 137 mcg (0.137 mL) intranasal Q12H 30 days 8.22 mL 6RF To azelastine administer into each nostril 137 mcg (0.137 mL) intranasal Q12H 90 mL 3RF 90 days Refilled eletriptan (Relpax) do not exceed 2 doses per 24 hrs 40 mg PO Q2-4H PRN 12 tabs 11RF migraine headache 30 days ubrogepant (Ubrelvy) take at onset of migraine, may repeat in 2hrs (may take w/ Ibuprofen) 50 - 100 mg (0.5 - 1 x 100 mg) PO ONCE PRN 16 tabs 11RF migraine headache 30 days Coding Level of Care Code Tele Est Pt Level 4 (53702) Diagnoses Chronic migraine without aura without status migrainosus, not intractable G43.709 Status migrainosus presence: without status migrainosus Intractability: not intractable 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
--- OUTSIDE RECORDS SUMMARY | 2025-10-11 18:31 | XMS_ITS | Clinical Summary ---
Author Organization [address] Address [address] [place] [phone] Phone Care Team Providers Care Green Chain Off Bearer Name Role Phone Senia Hayes MD Primary Care Provider [phone] Allergies Active Allergy Reactions Criticality Noted Date Comments Amoxicillin-Pot Clavulanate 03/19/20 13 Other Reaction(s): Rash/Dermatitis Levofloxacin Rash High 03/20/2018 Kdc: propylene Glycol+saccharin+levoflo xacin Medications azelaic acid (FINACEA) 15 % gel Apply 1 film topically. 05/22/20 23 Active eletriptan (RELPAX) 40 mg tablet Take 1 tablet (40 mg total) by mouth. 05/16/20 20 Active ubrogepant (UBRELVY) 100 mg tablet Take 1 tablet (100 mg total) by mouth 1 (one) time. Active norethindrone (AYGESTIN) 5 mg tabletIndications :Dysmenorrhea, unspecified TAKE 1 TABLET BY MOUTH EVERY DAY 90 tablet 4 10/07/20 24 Active amitriptyline (ELAVIL) 10 mg tablet TAKE 1 TABLET BY MOUTH DAILY AT BEDTIME FOR PAIN 01/29/20 25 Active ivermectin 1 % cream APPLY TO FACE EVERY DAY 01/20/20 25 Active fluticasone propionate (FLONASE) 50 mcg/actuation nasal spray Administer 1 spray into each nostril 2 (two) times a day. Shake gently. Before first use, prime pump. After use, clean tip and replace cap. 16 g 1 02/05/20 25 Active Additional Information Patient not taking.Reported on 07/28/2025 cetirizine (ZyrTEC) 10 mg tablet Take 1 tablet (10 mg total) by mouth 1 (one) time each day. 30 each 1 02/05/20 25 Active mirtazapine (REMERON) 7.5 mg tablet Take 1 tablet (7.5 mg total) by mouth. at bedtime 02/22/20 25 Active mesalamine (LIALDA) 1.2 gram EC tabletIndications :Ileitis Take 3 tablets (3.6 g total) by mouth 1 (one) time each day. Do not crush, chew, or split. 90 each 07/28/20 25 026 Active azaTHIOprine (IMURAN) 50 mg tablet Take 1 tablet (50 mg total) by mouth 1 (one) time each day. 30 each 3 08/08/20 25 026 Active tiZANidine (ZANAFLEX) 4 mg tablet TAKE 1 TABLET BY MOUTH EVERYDAY AT BEDTIME 30 tablet 08/18/20 25 Active azelastine (ASTELIN) 137 mcg (0.1 %) nasal spray SPRAY 137 MCG (0.137 ML) INTRANASALLY EVERY 12 HOURS FOR 30 DAYS ADMINISTER INTO EACH NOSTRIL 06/17/20 25 Active benzoyl peroxide (BENZAC AC) 10 % external wash APPLY TO BACK AND CHEST TWICE DAILY THEN RINSE 04/15/20 25 Active clindamycin (CLEOCIN T) 1 % gel APPLY TO BACK AND CHEST TWICE DAILY AFTER CLINDAMYCIN GEL 06/28/20 25 Active riboflavin (VITAMIN B2) 400 mg tablet take 1 tablet orally daily for 90 days 07/07/20 25 Active tacrolimus (PROTOPIC) 0.1 % ointment 08/15/20 25 Active promethazine (PHENERGAN) 25 mg tablet Take 1 tablet (25 mg total) by mouth every 8 (eight) hours if needed for nausea or vomiting. 30 tablet 3 09/22/20 25 Active ondansetron ODT (ZOFRAN-ODT) 8 mg disintegrating tablet Take 1 tablet (8 mg total) by mouth every 8 (eight) hours if needed for nausea or vomiting. 20 tablet 3 09/22/20 25 Active dicyclomine (BENTYL) 20 mg tablet Take 1 tablet (20 mg total) by mouth 4 (four) times a day if needed (abd pain, diarrhea). 120 tablet 3 09/22/20 25 Active ondansetron ODT (ZOFRAN-ODT) 8 mg disintegrating tablet Take 1 tablet (8 mg total) by mouth. 04/08/20 24 025 Discontinu ed(Reorder ) dicyclomine (BENTYL) 20 mg tablet Take 1 tablet (20 mg total) by mouth 4 (four) times a day if needed (abd pain, diarrhea). 120 tablet 5 07/28/20 25 025 Discontinu ed(Reorder ) promethazine (PHENERGAN) 25 mg tablet Take 1 tablet (25 mg total) by mouth every 8 (eight) hours if needed for nausea or vomiting. 30 tablet 3 07/28/20 25 025 Discontinu ed(Reorder ) acetaminophen (TYLENOL) 500 mg tablet TAKE 1 TABLET (500 MG TOTAL) BY MOUTH EVERY 6 (SIX) HOURS IF NEEDED FOR MILD PAIN. 120 tablet 08/30/20 25 025 Ventolin HFA 90 mcg/actuation inhaler INHALE 1 PUFF BY MOUTH 3 TIMES A DAY 04/21/20 25 025 Discontinu ed(Non-com pliance) predniSONE (DELTASONE) 20 mg tablet Take 2 tablets (40 mg total) by mouth 1 (one) time each day. for 5 days 04/21/20 25 025 Discontinu ed(Non-com pliance) Active Problems Problem Noted Date Diagnosed Date Simple obesity 09/08/2025 Chronic bilateral low back pain 06/03/2024 Overview (08/20/2024): Worker's Comp. injury. Following with [facility]. Ileitis 09/09/2023 Rosacea 05/27/2020 Microscopic hematuria 09/03/2019 Overview (08/20/2024): 09/05- 8 RBC, recheck ordered, neg culture 10/06- recheck never done, letter sent. Abnormal CXR 08/27/2019 Overview (08/20/2024): 09/05- lingular pneumonia, followup cxr 4-6 weeks 10/0634-[id number]-it chest x-ray never done, letter sent 11/05- follow-up chest x-ray never done, letter sent again Irritable bowel syndrome wit h both constipation and diarrhea 02/18/2018 Overview (01/14/2025): Vitamin D deficiency 02/05/2017 Recurrent cold sores 01/28/2017 Menstrual migraine 2015 Overview (01/14/2025): Dr. Nieves Encounters Date Type Department Care Team Description 09/22/2025 2:40 PM EST Office Visit Gastroenterology - [address] [facility] [address] [place] [phone] Megan Macario PA Crohn's disease of ileum without complication ([facility] V24, CMS/HCC V28) (Primary Dx); Chronic nausea; Irritable bowel syndrome with diarrhea 08/04/2025 Telephone Gastroenterology [facility] [address] [facility] [address] [facility] [address] [place] [phone] Megan Macario PA 07/29/2025 Telephone Gastroenterology [facility] [address] [facility] [address] [facility] [address] [place] [phone] Megan Macario PA 07/29/2025 Telephone Gastroenterology [facility] [address] [facility] [address] [facility] [address] [place] [phone] Megan Macario PA 07/28/2025 3:21 PM EDT - 07/28/2025 11:59 PM EDT Hospital Encounter [facility] CT Scan [address] [place] [address] Terminal ileitis with complication (CMS/HCC V24, CMS/HCC V28) Discharge Disposition: Home or Self Care 07/28/2025 3:05 PM EDT Lab Draw Station - [address] [place] [address] [place] [address] Crohn's disease of ileum without complication ([facility] V24, [facility] V28); Ileitis 07/28/2025 2:40 PM EDT Office Visit Gastroenterology - [place] [address] [place] [address] Megan Macario PA Crohn's disease of ileum without complication ([facility] V24, [facility] V28) (Primary Dx); Ileitis from Last 3 Months Immunizations Immunization Administration Dates Next Due DTaP (Infanrix) 6wks to less than 7yo ,08/31/1997,1996,07/09,1996 [id number]-BTR-UPU (Pentacel) 2mo to less than 5yo 05/31/1997,1996,1996,05/04 HPV, Quadrivalent 10/25/2010,07/10/2010,05/10/20 10 Hep B, Unspecified 1996,1996, 996 Hepatitis B Pediatric (Enger ix B; Recombivax HB) to less than 20 yo 1996,1996,1996 HiB 05/31/1997, 6,1996,05/04 IPV Inactivated polio (Ipol) 6wks and older 01/30/2001 Influenza trivalent, with pr eservative (Fluzone; Afluria) 6mo and older 08/29/2013,08/21/2012,08/28/2011,07/10 Influenza, Unspecified 09/03/2017 MMR, measles mumps and rubel la Live (Priorix; M-M-R II) 12mo and older 01/30/2001,05/31/1997 Meningococcal MCV4P 05/27/2013,04/22/2008 Meningococcal, Unspecified 05/27/2013,04/22/2008 OPV 01/30/2001, 6,1996,05/04 Tdap Tetanus diptheria acell ular pertussis (Boostrix; Adacel) 7yo and older 01/29/2018,04/30/2007 Varicella live (Varivax) 12m o and older 05/10/2010,02/15/1998 Surgical History Surgery Date Site/Laterality Comments APPENDECTOMY COLONOSCOPY Medical History Medical History Date Comments Recurrent cold sores 01/28/2017 Vitamin D deficiency 02/05/2017 Colitis Migraine Nausea Lumbar herniated disc Family History Medical History Relation Name Comments [...] your loved ones. For example, child care lead teacher or elderly care for an older adult? [...] Date Recorded What is your living situation? Unrecognized valu e 03/29/2025 Interpersonal Safety Answer Date Record ed Physical Abuse Unrecognized value 05/19/2025 Verbal Abuse Unrecognized value 05/19/2025 Comments No Sex and Gender Information Value Date Recorded Sex Assigned at Female 06/29/2025 1:16 PM EDT Legal Sex Female 1:28 AM EST Gender Identity Female 06/29/2025 1:16 PM EDT Sexual Orientation Straight 06/29/2025 1: 16 PM EDT Obstetrics History Last Filed Vital Signs Vital Sign Reading Time Taken Comments Blood Pressure 106/70 09/22/2025 2:39 PM EST Pulse 91 09/22/2025 2:39 PM EST Temperature 36.1 C (97 F) 05/19/2025 4:10 PM EDT Respiratory Rate 18 05/19/2025 4:30 PM EDT Oxygen Saturation 98% 09/22/2025 2:39 PM EST Inhaled Oxygen Concentration - - Weight 59 kg (130 lb) 09/22/2025 2:39 PM EST Height 160 cm (5' 3 ) 09/22/2025 2:39 PM EST Body Mass Index 23.03 09/22/2025 2:39 PM EST Plan of Treatment Upcoming Encounters Date Type Department Care Team (Late st Contact Info) Description 10/18/2025 4:00 PM EST Office Visit [facility] [place] [address] [place] [address] Ashley Warner, HANS [address] [place] [address] 03/17/2026 2:00 PM EDT Office Visit Obstetrics & Gynecology - [facility] [address] [place] [phone] Pietro Mcneil, CHRISTINA [address] [place] [address] 05/05/2026 2:20 PM EDT Office Visit Gastroenterology - [address] [facility] 299 [facility] [address] [place] [phone] Megan Macario PA [address] [address] Health Maintenance Due Date Last Done Comments Pneumococcal Vaccine: Pediatrics (0 to 5 Years) and At-Risk Patients (6 to 49 Years) (1 of 2 - PCV) 02/20/2015 Cervical Cancer Screening: Pap Smear 02/20/2017 COVID-19 Vaccine ( season) 2025 11/23/2021, 04/26/2021, 04/05/2021 Influenza Vaccine (#1) 2025 7, 08/29/2013, 08/21/2012, Additional history exists Social Influencers of Health Screening 03/29/2026 03/29/2025, 12/02/2023 Cholesterol Screening (Lipid Panel) 06/23/2026 Postponed from 10/27/2022 (Not clinically appropriate to address at this time) DTaP,Tdap,and Td Vaccines (8 - Td or Tdap) 01/30/2028 01/29/2018, 04/30/2007, 01/30/2001, Additional history exists RSV Immunization Adult Patients (1 - 1-dose 75+ series) 02/20/2071 Hepatitis B Vaccines Completed 1996, 1996, 1996, Additional history exists HIB Vaccines Completed 05/31/1997, 05/18, 1996, Additional history exists IPV Vaccines Completed 01/30/2001, 01/16, 05/31/1997, Additional history exists MMR Vaccines Completed 01/30/2001, 05/31/1997 Varicella Vaccines Completed 05/10/2010, 02/15/1998 HPV Vaccines Completed 10/25/2010, 06/19, 05/10/2010 Meningococcal ACWY Vaccine Completed 05/27, 05/27/2013, 04/22/2008, Additional history exists HIV Screening Completed 07/07/2025 Hepatitis C Screening Completed 07/07/2025 Depression Screening Completed 09/08/2025 Hepatitis A Vaccines Aged Out No long er eligible based on patient's age to complete this topic Meningococcal B Vaccine Aged Out No l onger eligible based on patient's age to complete this topic RSV Immunization Patients Under 20 months Aged Out No longer eligible b ased on patient's age to complete this topic Procedures Procedure Name Priority Date/Time Associated Diagnosis Comments CT ABDOMEN PELVIS W CONTRAST STAT 07/28/2025 3:47 PM EDT Terminal ileitis with complication (CMS/HCC V24, CMS/HCC V28) HEPATITIS B E ANTIBODY Routine 5 3:04 PM EDT Crohn's disease of ileum without complication (CMS/HCC V24, CMS/HCC V28) Ileitis THIOPURINE METABOLITES Routine 5 3:04 PM EDT Crohn's disease of ileum without complication (CMS/HCC V24, CMS/HCC V28) Ileitis HEPATITIS C ANTIBODY Routine 07/07/2025 12:06 PM EDT Screening for human immunodeficiency virus HIV 1, 2 ANTIBODY, P24 ANTIGEN WITH REFLEX TO DIFFERENTIATION Routine 07/07/2025 12:06 PM EDT Screening for human immunodeficiency virus from Last 3 Months or Most Recently Relevant to Health Maintenance Results * CT Abdomen Pelvis w Contrast (07/28/2025 3:47 PM EDT) Anatomical Region Laterality Modality Body Computed Tomogra phy 07/28/2025 4:24 PM EDT Impressions 07/28/2025 4:55 PM EDT Significant stool burden throughout the colon. No acute infectious or inflammatory process evident on CT. -------- FINAL REPORT -------- Dictated By: Shayla Alba Dictated Date: 07/28/2025 16:24 ET Assigned Physician: Shayla Alba Reviewed and Electronically Signed By: Shayla Alba Signed Date: 07/28/2025 16:55 ET Workstation ID: [id number] Transcribed By: Self Edit Transcribed Date: 07/28/2025 16:38 ET Narrative 07/28/2025 4:55 PM EDT PROCEDURE: CT ABDOMEN/PELVIS WITH CONTRAST INDICATION: The patient has Active Ileitis on Colonoscopy. I question CROHN's Disease. TECHNIQUE: CT of the abdomen and pelvis following the intravenous administration of 90cc Isovue 370. Multiplanar reformats. The examination was performed utilizing dose reduction techniques. Total DLP 582 COMPARISON: 10/10/2022 FINDINGS: LOWER THORAX: Lung bases are clear. HEPATOBILIARY: No focal liver lesions. No cholelithiasis or biliary duct dilatation. SPLEEN: No focal lesion. PANCREAS: No focal mass or ductal dilatation. ADRENALS: No nodules. KIDNEYS/URETERS: No hydronephrosis, stones, or solid mass. PELVIC ORGANS/BLADDER: Unremarkable. PERITONEUM / RETROPERITONEUM: No ascites or adenopathy. VESSELS: No aneurysm. GI TRACT: There is significant stool burden throughout the colon. Appendectomy. No small bowel obstruction. No superimposed infectious/inflammatory process is evident. BONES AND SOFT TISSUES: Scattered degenerative changes seen throughout the bones. Soft tissues are unremarkable. Procedure Note Shayla Alba MD - 07/28/2025 PROCEDURE: CT ABDOMEN/PELVIS WITH CONTRAST INDICATION: The patient has Active Ileitis on Colonoscopy. I questionCROHN's Disease. TECHNIQUE: CT of the abdomen and pelvis following the intravenousadministration of 90cc Isovue 370. Multiplanar reformats. The examinationwas performed utilizing dose reduction techniques. Total DLP 582 COMPARISON: 10/10/2022 FINDINGS: LOWER THORAX: Lung bases are clear. HEPATOBILIARY: No focal liver lesions. No cholelithiasis or biliary ductdilatation. SPLEEN: No focal lesion. PANCREAS: No focal mass or ductal dilatation. ADRENALS: No nodules. KIDNEYS/URETERS: No hydronephrosis, stones, or solid mass. PELVIC ORGANS/BLADDER: Unremarkable. PERITONEUM / RETROPERITONEUM: No ascites or adenopathy. VESSELS: No aneurysm. GI TRACT: There is significant stool burden throughout the colon.Appendectomy. No small bowel obstruction. No superimposedinfectious/inflammatory process is evident. BONES AND SOFT TISSUES: Scattered degenerative changes seen throughout thebones. Soft tissues are unremarkable. IMPRESSION: Significant stool burden throughout the colon. No acute infectious orinflammatory process evident on CT. -------- FINAL REPORT -------- Dictated By: Shayla Alba Dictated Date: 07/28/2025 16:24 ET Assigned Physician: Shayla Alba Reviewed and Electronically Signed By: Shayla Alba Signed Date: 07/28/2025 16:55 ET Workstation ID: [id number] Transcribed By: Self Edit Transcribed Date: 07/28/2025 16:38 ET Ron Richards MD IMG CT PROCEDURES Final Res ult * (ABNORMAL) Thiopurine metabolites (07/28/2025 3:04 PM EDT) 6-Thioguanine <50(L) 235 - 400 08/05/2025 7:37 PM EDT [facility] Comment: UNITS OF MEASURE: pmol/8x10(8)RBC (Note) This test was developed and its analytical performance characteristics have been determined by [facility]. It has not been cleared or approved by the FDA. This assay has been validated pursuant to the CLIA regulations and is used for clinical purposes. 6-Methylmercaptop urine <500 <5700 08/05/2025 7:37 PM EDT [facility] Comment: UNITS OF MEASURE: pmol/8x10(8)RBC (Note) These results are useful in assessing a patient's metabolism of azathioprine (AZA) or 6-mercaptopurine (6-MP). A 6-thioguanine (6-TG) level greater than 235 pmol/8x10(8) RBC has been associated with remission and very high levels have been associated with leucopenia. 6-methylmercaptopurine (6-MMP) levels greater than 5700 pmol/8x10(8) RBC may be associated with hepatoxicity. This test was developed and its analytical performance characteristics have been determined by [facility]. It has not been cleared or approved by the FDA. This assay has been validated pursuant to the CLIA regulations and is used for clinical purposes. [facility] [address] [facility] [address] [facility] [address] Hakan Stout MD, PhD Test Performed at: [facility] [address] [address], [address] [place] [address] Ean Stout MD, PhD Blood Venous blood specimen / Unknown Venipuncture / Unknown 07/28/2025 3:04 PM EDT 07/28/2025 3:04 PM EDT [facility] BLOOD ORDERABLES Final Re sult Performing Organization Address [facility]/ZIP Co de Phone Number [facility] [address] [place] [address] * Hepatitis B e antibody (07/28/2025 3:04 PM EDT) [facility] Hepatitis Be Antibody Nonreactive Nonreactive 07/31/2025 6:20 AM EDT [facility] Comment: Test performed at [facility], [address] [facility], [place] [address] Erin Frankel MD, PhD - Leveling Machine Operator Blood Venous blood specimen / Unknown Venipuncture / Unknown 07/28/2025 3:04 PM EDT 07/28/2025 3:04 PM EDT [facility] BLOOD ORDERABLES Final Re sult Performing Organization Address [facility]/ZIP Co de Phone Number [facility] [address] [place] [address] * Hepatitis C antibody (07/07/2025 12:06 PM EDT) [facility] Hepatitis C Antibody Negative Negative LAB CHEMISTRY METHOD 07/07/2025 4:54 PM EDT [facility] Blood Venous blood specimen / Unknown Venipuncture / Unknown 07/07/2025 12:06 PM EDT 07/07/2025 12:06 PM EDT Senia Hayes MD LAB BLOOD ORDERABLES Final Res ult Performing Organization Address [facility]/ZIP Co de Phone Number [facility] [address] [place] [address], [place] [phone] * HIV 1,2 antibody, p24 antigen with reflex to differentiation (07/07/2025 12:06 PM EDT) Pathologist [facility] HIV Combo AB/AG Negative Negative LAB CHEMISTRY METHOD 07/07/2025 4:54 PM EDT [facility] Blood Venous blood specimen / Unknown Venipuncture / Unknown 07/07/2025 12:06 PM EDT 07/07/2025 12:06 PM EDT Narrative [facility] - 07/07/2025 4:54 PM EDT This assay is a 4th generation assay allowing for earlier detection of HIV infection by detecting the presence of the HIV-1 p24 antigen as well as the traditional antibodies to HIV type 1 (including group O) and type 2. Use of a 4th generation assay is the current CDC recommendation for HIV screening. us Senia Hayes MD LAB BLOOD ORDERABLES Final Res ult Performing Organization Address [facility]/ZIP Co de Phone Number [facility] [address] [place] [address], [place] [phone] from Last 3 Months or Most Recently Relevant to Health Maintenance Insurance [employer] Care Teams Green Chain Off Bearer Relationship Specialty Start Date End Date Senia Hayes MD [address] [place] [address] PCP - General Internal Medicine 03/30/25
--- OUTSIDE RECORDS SUMMARY | 2025-10-11 18:31 | XMS_ITS | Clinical Summary ---
Author Organization [facility] Address [address] [place] [address] Care Team Providers Care Parking Technician Name Role Phone Alix Deshpande MD Primary Care Provider [phone] Allergies Active Allergy Reactions Criticality Noted Date [...] Active Problems Problem Noted Date Diagnosed Date [place]-neck deformity left small finger 08/12/2019 Family History [...] (P ap Smear) 02/20/2017 Influenza Vaccine (#1) 2025 Pneumococcal Vaccine Aged Out No long er eligible based on patient's age to complete this topic RSV Ped < 20 months Aged Out No longe r eligible based on patient's age to complete this topic Care Teams Parking Technician Relationship Specialty Start Date End Date Alix Deshpande MD PCP - General Internal Medicine 07/21/19
--- OUTSIDE RECORDS SUMMARY | 2025-10-11 18:31 | XMS_ITS ---
Author Name [facility] Organization Unknown Care Team Organization Name Specialty Phone Email Start Date End Da te [facility] Alix Deshpande Primary Care 09/25/2022
== END 2025-10-11 16:16 | disposition home or self-care (01) ==
LOC: HO.HSMS 13:42
PROVIDERS: PCP Internal Medicine; Visit Provider Nurse Practitioner Family
DX: G43.709 Chronic migraine without aura, not intractable, without status migrainosus (principal); F44.6 Conversion disorder with sensory symptom or deficit; K58.2 Mixed irritable bowel syndrome; G47.9 Sleep disorder, unspecified
CPT/HCPCS: 99214